=== PATIENT | female | born 1990 | race Caucasian/White ===

== ENCOUNTER 2018-02-21 05:25 | Day surgery (SDC) | payer MEDICAID ==
[2018-02-15 15:15] LABS: BASOPHILS % (AUTO) 0.4 % (0-1); EOSINOPHILS # (AUTO) 0.2 X10'3 (0-0.9); EOSINOPHILS % (AUTO) 3.1 % (0-6); LYMPHOCYTES # (AUTO) 1.5 X10'3 (1.1-4.8); LYMPHOCYTES % (AUTO) 24.4 % (21-51); MEAN CORPUSCULAR HEMOGLOBIN 31.3 PG (27.0-31.0); MEAN PLATELET VOLUME 6.4 FL (7.4-10.4); MONOCYTES # (AUTO) 0.6 X10'3 (0-0.9); MONOCYTES % (AUTO) 8.9 % (2-12); NEUTROPHILS # (AUTO) 3.9 X10'3 (1.8-7.7); NEUTROPHILS % (AUTO) 63.2 % (42-75); PRE OP HEMATOCRIT 36.6 % (35.0-45.0); PRE OP HEMOGLOBIN 12.4 g/dL (12.0-16.0); PRE OP PLATELET COUNT 269 X10'3 (140-440); RED BLOOD COUNT 3.98 X10'6 (4.20-5.60); RED CELL DISTRIBUTION WIDTH 13.4 % (11.5-14.5)
[2018-02-15 15:30] LABS: ALBUMIN 3.8 G/DL (3.4-5.0); ALBUMIN/GLOBULIN RATIO 1.1 (1.1-1.5); ALKALINE PHOSPHATASE 87 IU/L (46-116); BLOOD UREA NITROGEN 16 MG/DL (7-18); CALCIUM 8.6 MG/DL (8.5-10.1); CHLORIDE 106 MMOL/L (99-107); CREATININE 0.89 MG/DL (0.40-0.90); PRE OP ALT 64 U/L (30-65); PRE OP ANION GAP 7 (8-16); PRE OP AST 27 U/L (10-37); PRE OP BILIRUB, TOTAL 0.3 MG/DL (0.0-1.0); PRE OP GLUCOSE 92 MG/DL (70-104); PRE OP POTASSIUM 3.7 MMOL/L (3.4-5.1); PRE OP SODIUM 144 MMOL/L (135-145); TOTAL CARBON DIOXIDE 31.4 MMOL/L (24-32); TOTAL PROTEIN 7.2 G/DL (6.4-8.2); eGFR 75 ML/MIN
[2018-02-15 15:41] LABS: HCG SERUM QL NEGATIVE
[~2018-02-21] VITALS: Ht 154.9 cm; Wt 89.1 kg
[2018-02-21] VITALS (8 sets, daily range): BP systolic 115–140; BP diastolic 53–76
[~2018-02-21 05:25] MED LIST: NO HOME MEDS; ringers solution, lacted 1,000 ML IV SCH
[2018-02-21] MEDS ORDERED: ceFAZolin inj. 2,000 MG in normal saline 100ml IV soln 100 ML IV ONE (05:30)
[2018-02-21] MEDS ORDERED: famotidine 20mg tablet PO ONE (05:30)
[2018-02-21] MEDS ORDERED: LIDOcaine 1% (10mg/ml) 2ml vial ONE (05:43)
[2018-02-21] MEDS ORDERED: bupivacaine (with preservative) 5 mg/ml inj. 50ml ONE (06:54)
[2018-02-21] MEDS ORDERED: epiNEPHrine 1 mg/ml inj ONE (06:56)
[2018-02-21] MEDS ORDERED: midazolam 2 mg/2 ml injection ONE (07:12)
[2018-02-21] MEDS ORDERED: fentaNYL/PF 50MCG/1 ML 2ML syringe ONE (07:12)
[2018-02-21] MEDS ORDERED: propofol inj 20 ML IV ONE (07:14)
[2018-02-21] MEDS ORDERED: rocuronium 10mg/ml inj IV ONE (07:14)
[2018-02-21] MEDS ORDERED: LIDOcaine 2% (20mg/ml) 5ml vial ONE (07:14)
[2018-02-21] MEDS ORDERED: dexamethasone sod phosphate 4mg/ml inj. ONE (07:20)
[2018-02-21] MEDS ORDERED: ringers solution, lacted 1,000 ML IV SCH (07:37)
[2018-02-21] MEDS ORDERED: ondansetron/PF 4mg/2ml inj IV PRN (07:40)
[2018-02-21] MEDS ORDERED: proCHLORperazine 10 MG/2 ml inj IV PRN (07:40)
[2018-02-21] MEDS ORDERED: morphine 4 MG/ML inj SYRINge IV PRN ×2 (07:40)
[2018-02-21] MEDS ORDERED: meperidine/PF 25mg/ml syringe IV PRN ×3 (07:40)
[2018-02-21] MEDS ORDERED: meperidine/PF 50mg/ml syringe ONE (07:54)
== END 2018-02-21 09:22 | disposition home or self-care (01) ==
LOC: PAS 05:25
PROVIDERS: ATTEND Obstetrics & Gynecology
DX: Z30.2 Encounter for sterilization (principal); N73.6 Female pelvic peritoneal adhesions (postinfective); J45.909 Unspecified asthma, uncomplicated; F12.90 Cannabis use, unspecified, uncomplicated; Z72.89 Other problems related to lifestyle
CPT/HCPCS: 36415; 58670; 80053; 84703; 85025; A6258; A6402; J0171; J0690; J0780; J1100; J2001; J2175; J2250; J2704; J3010; J3490; J7030; J7120; A7000